=== PATIENT | male | born 1990 | race Caucasian/White ===

== ENCOUNTER 2019-05-10 18:55 | Inpatient (IN) ==
[2019-05-10] MEDS ORDERED: TORADOL IM ONE (19:34)
[2019-05-10 20:08] LABS: URINE SOURCE CLEAN CATCH
[2019-05-10 20:15] LABS: BASO# 0.02 X1000 (0.0-0.2); BASO% 0.1 % (0.0-0.8); HEMATOCRIT 43.1 % (42.0-52.0); IMM GRAN# 0.11 X1000 (0.0-0.04); IMM GRAN% 0.5 % (0.0-0.5); LYMPH# 0.96 X1000 (1.2-3.4); LYMPH% 4.2 % (20.5-51.1); MCHC 34.8 g/dL (33-37); MCV 80.6 FL (81-99); MONO# 0.59 X1000 (0.11-0.59); MONO% 2.6 % (1.7-9.3); MPV 11.6 FL (7.4-10.4); NEUT% 92.6 % (42.2-75.2); PLT 278 X1000 (130-400); RBC 5.35 XMIL (4.7-6.1); RDW 12.9 % (11.5-14.5); WBC 23.08 X1000 (4.8-10.8)
[2019-05-10 20:17] LABS: BILIRUBIN URINE SMALL (NEGATIVE); BLOOD URINE SMALL (NEGATIVE); COLOR ORANGE; GLUCOSE URINE TRACE mg/dL (NEGATIVE); KETONE URINE TRACE mg/dL (NEGATIVE); LEUKOCYTES URINE NEGATIVE (NEGATIVE); NITRITE URINE NEGATIVE (NEGATIVE); PH URINE 6.5; PROTEIN URINE 200 mg/dL (NEGATIVE); SP GRAVITY URINE 1.035; TURBIDITY URINE CLEAR (CLEAR); UROBILINOGEN URINE 8 mg/dL (NORMAL)
[2019-05-10 20:19] LABS: UR EPITHELIAL CELLS <10 /HPF (<10); URINE BACTERIA NEGATIVE /HPF; URINE WBC <10 /HPF (<10)
--- NOTE | 2019-05-10 20:19 | Diag Imaging Result Doc PS360 ---
CHEST-1 VIEW - 05/10/2019 INDICATION: fever COMPARISON: None FINDINGS: The lungs are normally expanded and clear. Heart size and mediastinal contours are normal. No pneumothorax or pleural effusion. IMPRESSION: Negative exam. Electronically signed by Martinez Hernandez 05/10/2019 8:16 PM
[2019-05-10 20:24] LABS: UR AMPHETAMINES QUAL NONE DETECTED (NONE DETECT); UR BARBITUATES QUAL NONE DETECTED (NONE DETECT); UR BENZODIAZEPIN QUAL NONE DETECTED (NONE DETECT); UR CANNABINOIDS QUAL PRESUMPTIVE POSITIVE (NONE DETECT); UR COCAINE QUAL NONE DETECTED (NONE DETECT); UR METHADONE QUAL NONE DETECTED (NONE DETECT); UR OPIATES QUAL NONE DETECTED (NONE DETECT); UR OXYCODONE QUAL NONE DETECTED (NONE DETECT); UR PCP QUAL NONE DETECTED (NONE DETECT)
[2019-05-10 20:32] LABS: AGAP 13; ALB/GLOB RATIO 1.1; ALBUMIN 4.4 g/dL (3.5-5.0); ALKALINE PHOSPHATASE 80 U/L (32-122); BUN 13 mg/dL (8-22); CALCIUM 8.7 mg/dL (8.8-10.2); CHLORIDE 97 mmol/L (98-107); COSMO 278; CREATININE 0.9 mg/dL (0.7-1.2); ESTIMATED GFR > 60; GLUCOSE 175 mg/dL (70-104); GOT 39 U/L (10-34); GPT 39 U/L (10-44); LARGE PLATELETS OCCASIONAL; LYMPHS 3 % (21-51); MONO 4 % (1-9); POTASSIUM 3.2 mmol/L (3.5-5.1); SEGS 93 % (42-75); SODIUM 137 mmol/L (136-145); TCO2 27 mmol/L (25-35); TOTAL BILIRUBIN 1.63 mg/dL (0.20-1.00); TOTAL PROTEIN 8.3 g/dL (6.3-8.3)
--- NOTE | 2019-05-10 21:09 | EKG Report ---
Test Performed on : 05/10/2019 8:31:44 PM Test Reason : weakness Blood Pressure : / mmHG Vent. Rate : 123 BPM Atrial Rate : 123 BPM P-R Int : 092 ms QRS Dur : 080 ms QT Int : 382 ms P-R-T Axes : 080 040 054 degrees QTc Int : 546 ms Sinus tachycardia. with short [place] Otherwise normal ECG No previous ECGs available Unconfirmed Result
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
[2019-05-11] MEDS ORDERED: NS 1,000 ML IV ONE (09:26)
--- NOTE | 2019-05-11 09:54 | Diag Imaging Result Doc PS360 ---
EXAM: CT ABDOMEN/PELVIS W/O CONTRAST - 05/11/2019 HISTORY: fever, hematuria, hx stones TECHNIQUE: CT renal stone search without contrast COMPARISON: None. FINDINGS: There is no hydronephrosis or perinephric edema identified. There is no renal stone identified. There is a small phlebolith noted in the left pelvis below the ureterovesicular junction. There is no evidence of bowel obstruction. The appendix is not discretely visualized distinguishable from unopacified bowel. There is no obvious pericecal inflammation. There is a moderate amount retained fecal debris in the colon suggesting constipation. There are no calcified gallstones or pericholecystic inflammation identified. There is no free air or free fluid identified. There are hazy infiltrates at the visualized lung bases. There are small sclerotic lesions in the right femoral head and right sacral ala. These likely represent bone islands. IMPRESSION: No evidence of renal stone or hydronephrosis. No bowel obstruction. Evidence of constipation. Hazy infiltrates at bilateral lung bases. Pneumonitis cannot be excluded. This exam was performed using automated exposure control, adjustment of mA or kV according to patient size, and/or use of iterative reconstruction technique. Electronically signed by Ramesh Kothari 05/11/2019 9:52 AM
[2019-05-11] MEDS ORDERED: DOXYCYCLINE PO ONE (12:38)
[2019-05-11] MEDS ORDERED: ROCEPHIN 2 GM in NS 50 ML IV ONE ×2 (12:38→14:00)
[2019-05-11] MEDS ORDERED: NS 50 ML ONE (13:19)
--- NOTE | 2019-05-11 13:47 | HISTORY AND PHYSICAL ---
He presented to the emergency room yesterday morning, 05/10/2019. The story is that he apparently called paramedics. His mom had . On arrival, they found that she was . He is an only child and was living with his mother. He has been on medications since he has been 13, he says mainly for anxiety and panic attacks, and I think some depression. He has been out of his medicines for a while and he was hoping to get back into [facility] so was on hold. They noted that he was having fever and they checked some lab work. White count was 23,080, hematocrit 43, platelet count 278,000 and it is predominantly neutrophils. His electrolytes looked unremarkable. Mild elevation of bilirubin, mild elevation of AST of 39, ALT was 39. He said that he has had a little bit of blood, he noticed maybe last week. Has a little bit of burning when he passes his water. PAST MEDICAL HISTORY: Really nothing significant. PAST SURGICAL HISTORY: He had his tonsils out when he was young. ALLERGIES: No known drug allergies. FAMILY HISTORY: Positive for hypertension and I think some heart disease. REVIEW OF SYSTEMS: He did not report any recorded weight change. No fever or chills, although in the last 24 hours, he has felt like he has had some chills and fever. HEENT: No change in visual or hearing acuity reported. No adenopathy. No upper respiratory complaints like postnasal drainage or sinus tenderness. Respiratory: No increased work of breathing or dyspnea. No cough. No pleuritic pain. Cardiovascular: No chest pain or tachy palpitations. Gastrointestinal and Genitourinary: No gross hematuria or dysuria. Musculoskeletal/Neurologic: No focal complaints. PHYSICAL EXAMINATION: GENERAL: He looks thin. There is a little bit of temporal wasting, consistent with protein calorie malnutrition. VITAL SIGNS: He is afebrile. T-max was 100.8 degrees, pulse is 97, respirations 20, blood pressure 120/74. HEENT: Pupils are equal and round. LUNGS: Clear in all lung prince. CARDIOVASCULAR EXAMINATION: Regular rhythm and rate without murmur or S3. ABDOMEN: Soft, nondistended. No organomegaly. VASCULAR: Carotid, radial, and femoral pulses 2+ and symmetrical. SKIN: Warm and dry. No rashes. No oral or nasal mucosa lesions. NECK: Supple without adenopathy. REVIEW OF LABORATORY DATA: White count 23,080, hematocrit is 43, platelet count 278,000. Sodium 137, potassium 3.2, chloride 97, BUN 13, creatinine 0.9, blood sugar 175, calcium 8.7. Albumin was 4.4. Urine drug screen presumptive positive for cannabinoids. Otherwise negative for opiates, oxycodone, methadone, barbiturates, phencyclidine, amphetamines, benzodiazepines, and cocaine. He does not drink any alcohol. Alcohol was negative. Urine, 10 to 20 red blood cells, less than 10 white blood cells. Chest x-ray on 05/10/2019, yesterday, negative. No sign of infiltrates. Abdominal and pelvic CT done today, there is no evidence of renal stone or hydronephrosis, hazy infiltrates, bilateral lung bases. Pneumonitis could not be excluded. ASSESSMENT AND PLAN: 1. Fever and chills, and it looks like it is atelectasis in his bases but we will cover him for a possible urinary tract or respiratory infection, bacterial infection. We will use Rocephin. We will give him 2 g of Rocephin intravenously every 24 hours. We will check urine for culture. We will get a set of blood cultures. Repeat a chest x-ray tomorrow. 2. Concerned about his protein calorie malnutrition. I am not sure he is eating very well at home so we will put him on a regular diet and we will watch his intake. 3. History of anxiety. I think he must have a history with some psychotic features as well, as he is on Zyprexa. We are going to put him back on his medicines, which he has not been taking regularly at this time and we will use Zyprexa 15 mg by mouth at night, Remeron 5 mg at bedtime, and Xanax 1 mg at bedtime as well. We will give him his first dose of those now. We will check his thyroid, T4, TSH, B12, and folate. We will check a morning cortisol level. We will repeat his CBC and Chem-22 with a magnesium in the morning. We will give him fluids and run it at 85 mL an hour. cc: Sabino Galan MD
[2019-05-11] MEDS ORDERED: ZOFRAN IV PRN (13:58)
[2019-05-11 14:33] LABS: BASO# 0.02 X1000 (0.0-0.2); BASO% 0.1 % (0.0-0.8); EOS# 0.03 X1000 (0.0-0.7); EOS% 0.1 % (0.0-10.0); HEMATOCRIT 40.1 % (42.0-52.0); IMM GRAN# 0.09 X1000 (0.0-0.04); IMM GRAN% 0.4 % (0.0-0.5); LYMPH# 1.17 X1000 (1.2-3.4); LYMPH% 5.7 % (20.5-51.1); MCH 28.6 PG (27-31); MCHC 34.9 g/dL (33-37); MONO# 0.63 X1000 (0.11-0.59); NEUT# 18.74 X1000 (1.4-6.5); NEUT% 90.7 % (42.2-75.2); PLT 259 X1000 (130-400); RBC 4.89 XMIL (4.7-6.1); RDW 13.1 % (11.5-14.5); WBC 20.68 X1000 (4.8-10.8)
[2019-05-11 14:53] LABS: LARGE PLATELETS OCCASIONAL; LYMPHS 8 % (21-51); MONO 2 % (1-9); SEGS 90 % (42-75)
[2019-05-11] MEDS: NS 1,000 ML IV SCH (15:26)
[2019-05-11] MEDS: TYLENOL PO PRN ×2 (17:02→21:00)
[2019-05-11] MEDS: ZYPREXA PO SCH (21:00)
[2019-05-11] MEDS: REMERON PO SCH (21:00)
[2019-05-11] MEDS: XANAX PO SCH (21:00)
[2019-05-12] MEDS: NS 1,000 ML IV SCH ×2 (03:17→17:02)
[2019-05-12] MEDS: TYLENOL PO PRN ×3 (03:56→21:25)
--- NOTE | 2019-05-12 06:44 | Diag Imaging Result Doc PS360 ---
EXAM: CHEST-PORTABLE HISTORY: ? Pneumonitis TECHNIQUE: Chest single view COMPARISON: 05/10/2019 FINDINGS: The lungs are well expanded. The heart is not enlarged. The vessels are not distended. There are no infiltrates. No effusion identified. IMPRESSION: No definite pneumonia Electronically signed by Derek Altamirano 05/12/2019 6:42 AM
[2019-05-12 07:32] LABS: BASO# 0.02 X1000 (0.0-0.2); BASO% 0.1 % (0.0-0.8); EOS# 0.16 X1000 (0.0-0.7); EOS% 0.9 % (0.0-10.0); HEMATOCRIT 37.9 % (42.0-52.0); HEMOGLOBIN 13.2 g/dL (14.0-18.0); IMM GRAN# 0.08 X1000 (0.0-0.04); IMM GRAN% 0.5 % (0.0-0.5); LYMPH# 1.76 X1000 (1.2-3.4); MCH 29.2 PG (27-31); MCHC 34.8 g/dL (33-37); MCV 83.8 FL (81-99); MONO# 0.63 X1000 (0.11-0.59); MONO% 3.6 % (1.7-9.3); MPV 12.1 FL (7.4-10.4); NEUT# 14.99 X1000 (1.4-6.5); NEUT% 84.9 % (42.2-75.2); PLT 302 X1000 (130-400); RBC 4.52 XMIL (4.7-6.1); RDW 13.3 % (11.5-14.5); WBC 17.64 X1000 (4.8-10.8)
[2019-05-12 07:47] LABS: AGAP 14; ALB/GLOB RATIO 0.9; ALBUMIN 3.4 g/dL (3.5-5.0); ALKALINE PHOSPHATASE 81 U/L (32-122); BUN 11 mg/dL (8-22); CALCIUM 8.6 mg/dL (8.8-10.2); CHLORIDE 101 mmol/L (98-107); COSMO 279; CREATININE 0.9 mg/dL (0.7-1.2); ESTIMATED GFR > 60; GLUCOSE 105 mg/dL (70-104); GOT 28 U/L (10-34); GPT 31 U/L (10-44); POTASSIUM 2.9 mmol/L (3.5-5.1); SODIUM 140 mmol/L (136-145); TCO2 25 mmol/L (25-35); TOTAL BILIRUBIN 1.15 mg/dL (0.20-1.00); TOTAL PROTEIN 7.3 g/dL (6.3-8.3)
[2019-05-12 07:48] LABS: HEMOGLOBIN A1C 5.3 % (4.8-6.0)
[2019-05-12 08:07] LABS: FREE T4 1.16 ng/dL (0.93-1.70); TSH 0.62 uIUmL (0.27-4.20)
[2019-05-12] MEDS: ZYPREXA PO SCH ×2 (09:21→20:31)
[2019-05-12] MEDS: ROCEPHIN 1 GM in NS 50 ML IV SCH (13:11)
--- NOTE | 2019-05-12 16:36 | EKG Report ---
Test Performed on : 05/12/2019 4:29:52 PM Test Reason : elevated heart rate Blood Pressure : / mmHG Vent. Rate : 116 BPM Atrial Rate : 116 BPM P-R Int : 094 ms QRS Dur : 088 ms QT Int : 308 ms P-R-T Axes : 076 035 045 degrees QTc Int : 428 ms Sinus tachycardia. with short SD Otherwise normal ECG Confirmed by Génesis Schmidt MD ([id number]) on 05/13/2019 8:30:48 AM
[2019-05-12] MEDS: ATIVAN PO PRN (16:59)
--- NOTE | 2019-05-12 17:01 | PROGRESS NOTE ---
DATE: 05/12/2019 SUBJECTIVE: Mr. Soto is feeling much better back on his medications. Nursing staff is concerned that sometimes his heart rate will get up to the 160 and even 190s, but he does feel better. Blood pressure looks good. OBJECTIVE: Vital Signs: Last several blood pressures are 129/82, 120/72, 110/61, 136/84. HEENT: Pupils are equal and round. Lungs: Clear in all lung prince. Cardiovascular: Regular rhythm and rate without murmur or S3. Abdomen: Soft. Skin: Warm and dry. ASSESSMENT AND PLAN: 1. Fever and chills. Atelectasis in the bases on x-ray. Potential urinary tract infection. He is getting Rocephin. His blood cultures are pending. White count has come down a little bit. 2. History of depression, anxiety, and I guess with some psychotic features. He is back on his medical regimen. 3. Recently lost his mom, traumatic event. I will let him have a little clonidine p.r.n. for heart rate going above 140. cc: Sabino Galan MD
[2019-05-12] MEDS: REMERON PO SCH (20:30)
[2019-05-12] MEDS: XANAX PO SCH (20:31)
[2019-05-13] MEDS: NS 1,000 ML IV SCH (08:10)
[2019-05-13] MEDS: ZYPREXA PO SCH ×2 (09:23→20:29)
--- NOTE | 2019-05-13 12:12 | PROGRESS NOTE ---
DATE: 05/13/2019 SUBJECTIVE: Mr. Soto is feeling much better. OBJECTIVE: Vitals: He has remained afebrile, temperature 98.4 degrees pulse 117, respirations 20, blood pressure 131/79. HEENT: Pupils are equal and round. Lungs: Clear in all lung prince. Cardiovascular: Regular in rate, without murmur or S3. : Urine output is 4300 mL. ASSESSMENT AND PLAN: 1. Fever and chills. Atelectasis in the lung bases. We will get another followup chest x-ray today. Note that his EKG showed sinus rhythm. He has had sinus tachycardia. He is eating well and is talking about wanting to go home. His cultures show no growth. 2. Lab work. We will check white count again. He had some leukocytosis when he came in. I will check another chest x-ray and check CBC and electrolytes again in the morning. 3. He is back on his medication, history of depression with some psychotic features in the past and seems to be doing better. He still has an elevated heart rate at times and we have given him some Ativan p.r.n. cc: Sabino Galan MD
--- NOTE | 2019-05-13 12:36 | Diag Imaging Result Doc PS360 ---
EXAM: CHEST-2 VIEWS 05/13/2019 HISTORY: pneumonia TECHNIQUE: PA and lateral chest COMMENT: There is no evidence of acute cardiac or pulmonary disease. Compared to 05/12/2019 the appearance of the chest has not changed appreciably. IMPRESSION: Stable chest. Electronically signed by Pako Ramon 05/13/2019 12:33 PM
[2019-05-13 13:19] LABS: HEPATITIS PROFILE ACUTE SEE COMMENTS
[2019-05-13] MEDS: ROCEPHIN 1 GM in NS 50 ML IV SCH (14:20)
[2019-05-13] MEDS: ATIVAN PO PRN (14:31)
[2019-05-13] MEDS: XANAX PO SCH (20:28)
[2019-05-13] MEDS: REMERON PO SCH (20:29)
[2019-05-14] MEDS: NS 1,000 ML IV SCH (00:03)
[2019-05-14] MEDS: TYLENOL PO PRN (04:02)
[2019-05-14 07:47] LABS: BASO# 0.04 X1000 (0.0-0.2); BASO% 0.3 % (0.0-0.8); EOS# 0.24 X1000 (0.0-0.7); EOS% 1.8 % (0.0-10.0); HEMATOCRIT 35.1 % (42.0-52.0); HEMOGLOBIN 11.9 g/dL (14.0-18.0); IMM GRAN# 0.14 X1000 (0.0-0.04); LYMPH% 11.9 % (20.5-51.1); MCH 28.5 PG (27-31); MCHC 33.9 g/dL (33-37); MONO% 3.7 % (1.7-9.3); MPV 11.3 FL (7.4-10.4); NEUT# 10.88 X1000 (1.4-6.5); NEUT% 81.3 % (42.2-75.2); PLT 312 X1000 (130-400); RBC 4.18 XMIL (4.7-6.1); RDW 13.4 % (11.5-14.5)
[2019-05-14 08:12] LABS: HEMOGLOBIN A1C 5.3 % (4.8-6.0)
[2019-05-14 08:15] LABS: AGAP 14; ALB/GLOB RATIO 0.6; ALBUMIN 2.4 g/dL (3.5-5.0); ALKALINE PHOSPHATASE 93 U/L (32-122); BUN 11 mg/dL (8-22); CHLORIDE 106 mmol/L (98-107); COSMO 279; CREATININE 0.7 mg/dL (0.7-1.2); ESTIMATED GFR > 60; GLUCOSE 104 mg/dL (70-104); GOT 39 U/L (10-34); GPT 44 U/L (10-44); MAGNESIUM 1.7 mg/dL (1.5-2.7); SODIUM 140 mmol/L (136-145); TCO2 20 mmol/L (25-35); TOTAL BILIRUBIN 0.52 mg/dL (0.20-1.00); TOTAL PROTEIN 6.6 g/dL (6.3-8.3)
[2019-05-14] MEDS: ZYPREXA PO SCH (09:16)
[2019-05-14 13:05] VITALS: BP 135/76
--- NOTE | 2019-05-14 13:10 | DISCHARGE SUMMARY ---
ADMISSION DATE: 05/11/2019 DISCHARGE DATE: 05/14/2019 PRIMARY CARE PHYSICIAN: He has no primary care physician. HISTORY AND HOSPITAL COURSE: He came to the emergency room. He was hoping to get into [place]. He had run out of his medications, recently lost his mom and while he was waiting in the emergency room, noticed he spiked a fever. He is an only child and recent loss of his mother off of his medications. History of depression with some psychotic features when he was young and I think it was bipolar, so admitted him to the hospital with fever and chills. Had an elevated white count. We checked chest x-ray and there was no definite pneumonia. He did have some urine sediment and he had had a history of some dysuria. His blood cultures were negative. His urine was pretty unremarkable. Had some prostate discomfort. So he is feeling better. I put him back on his usual medications and he was eating well and he remained afebrile. So the plan is to discharge him home. He does not want to go to [place], he wants to go home. He has no suicidal thoughts or homicidal thoughts and he has started the grieving process for his mother. DISCHARGE MEDICATIONS: He takes Xanax 1 mg at bedtime. I gave him some Ativan to take p.r.n. He is on Remeron 5 mg p.o. at bedtime, Zyprexa 15 mg at bedtime and then I think he takes Zyprexa 15 mg in the morning as well. I will continue just the Zyprexa 15 mg in the morning and 15 mg at night. FOLLOWUP: He already has a psychiatrist he is following, very important that he follows up with his psychiatrist, but also to get a primary care physician. DISPOSITION: I am going to let him go home. cc: Sabino Galan MD
[2019-05-14] MEDS: ROCEPHIN 1 GM in NS 50 ML IV SCH (13:50)
== END 2019-05-14 15:16 | disposition home or self-care (01) | DRG 864 ==
LOC: ED 18:55 → 1N 05-11 13:39
PROVIDERS: ATTEND Emergency Medicine